=== PATIENT | male | born 2000 | race Caucasian/White ===

== ENCOUNTER 2022-09-28 10:29 | Day surgery (SDC) | payer OTHER, SELFPAY ==
[2022-09-28] VITALS (16 sets, daily range): BP systolic 90–153; BP diastolic 55–109; PULSE 46–69; RESP 16–20; TEMP 36.3–37.1; O2SAT 96–100; BMI 20.3
--- NOTE | 2022-09-28 11:00 | ED_ITS ---
HPI - Abdominal Pain General Time Seen by Provider: 10:45 Date Seen: 09/28/22 Chief Complaint: Abdominal Pain Stated Complaint: Lower RT quadrant abdominal pain Time Seen by Provider: 09/28/22 10:59 Source: patient, family, RN notes reviewed and old records reviewed Mode of arrival: ambulatory Limitations: no limitations History of Present Illness HPI narrative: Henrique is a very pleasant 22-year-old male previously healthy who comes to the emergency room with his father for evaluation of abdominal pain. Patient had the onset of right lower quadrant pain 3 days ago which has continued and seems to be a little bit worse today. He is still eating and has no nausea or vomiting. He has not had fever or chills. Occasionally the pain in the right lower quadrant radiates into the right groin. He has no pain radiating into his scrotum or history of kidney stones. He denies dysuria hematuria. Two siblings have had appendicitis. Dad also states that Henrique has had possibly some issues with his GI tract. He has remote family history of celiac disease. He tends toward looser stools and that is what he is experiencing currently. Has not noticed any blood in his stool. Related Data Home Medications Medication Instructions Recorded Confirmed No Known Home Medications 09/28/22 09/28/22 Allergies Allergy/AdvReac Type Severity Reaction Status Date / Time No Known Drug Allergies Allergy Verified 09/28/22 11:40 Review of Systems Status of ROS Reports: 10 or more systems reviewed and unremarkable except as noted in History and below Const Denies: fever, chills, change in weight or fatigue ENMT Denies: throat pain, neck pain or difficulty swallowing Cardio Denies: chest pain or shortness of breath with exertion Resp Denies: shortness of breath, cough or wheezing GI Reports: abdominal pain; Denies: nausea, vomiting, difficulty swallowing or blood in stool Denies: painful urination, urinary frequency or urinary urgency Musculo Denies: neck pain Integ/Breast Denies: rash Neuro Denies: headache or numbness in extremities Endo Denies: fatigue Allergy/Immuno Denies: wheezing PFSH PFSH Social History (Updated 09/28/22 @ 14:25 by Sang Liu MD) Narrative: Patient denies smoking and occasionally drinks alcohol. He works in [employer], office job. Smoking Status: Never smoker Do you use any of these nicotine containing products: None How often do you have a drink containing alcohol: never How often do you have six or more drinks on one occasion: Never AUDIT-C Alcohol total score: 0 Non-prescribed substance use: denies use Exam Narrative: Exam Narrative: Henrique is alert and oriented. Very pleasant young man in no acute distress. Heart with regular rate and rhythm and lungs are clear. Abdomen is soft but he does have tenderness right lower quadrant any does have rebound tenderness. I do not palpate any bulging or evidence of hernia. Moving of the bed or hitting the bottom of his foot does not increase his pain. Const: Vital Signs, click to edit/add: Vital Signs - 24 hr 09/28/22 10:33 09/28/22 14:50 Temperature 97.3 F L 98.7 F Pulse Rate [Pulse Oximeter] 69 54 L Respiratory Rate 16 18 Blood Pressure [Ri ght Upper Arm] 139/94 H 121/74 Pulse Oximetry 97 98 Oxygen Delivery Me thod Room Air Room Air Documenting provider has reviewed patient's vital signs: yes Course Course Hospital Course: Differential diagnosis includes but is not limited to appendicitis, hernia, colitis. Recommend IV placement with 1 L normal saline, CBC, CRP, comprehensive panel and urinalysis check. Reevaluation(s) Reevaluation #1: Patient will proceed to CT to rule out appendicitis even with normal white count. Patient declines any pain medications at this time. Vital Signs Vital signs: Initial Vital Signs Temperature 97.3 F L 09/28/22 10:33 Temperature Source Temporal Artery Scan 09/28/22 10:33 Pulse Rate 69 09/28/22 10:33 Respiratory Rate 16 09/28/22 10:33 Blood Pressure 139/94 H 09/28/22 10:33 Blood Pressure Mean 109 09/28/22 10:33 Blood Pressure Position Supine 09/28/22 10:33 Pulse Oximetry 97 09/28/22 10:33 Oxygen Delivery Method 09/28/22 10:33 Vital Signs Temperature 97.3 F L 09/28/22 10:33 Pulse Rate 69 09/28/22 10:33 Respiratory Rate 16 09/28/22 10:33 Blood Pressure 139/94 H 09/28/22 10:33 Pulse Oximetry 97 09/28/22 10:33 Oxygen Delivery Method 09/28/22 10:33 Temperature 98.7 F 09/28/22 14:50 Pulse Rate 54 L 09/28/22 14:50 Respiratory Rate 18 09/28/22 14:50 Blood Pressure 121/74 09/28/22 14:50 Pulse Oximetry 98 09/28/22 14:50 Oxygen Delivery Method 09/28/22 14:50 MDM - Abdominal Pain MDM Narrative Medical decision making narrative: 1. Appendicitis-patient has a CT confirmed appendicitis. Three days of right lower quadrant pain without anorexia or fever. White count is normal and CRP is 1.3. Currently awaiting surgical consultation. Patient's oral cavity with easily visualized posterior oropharynx. Dentition intact. Patient has no history of problems with anesthesia. No family history of malignant hyperthermia. 2. Disposition-patient will have surgical consultation, likely appendectomy today. Medical Records Attestation: I reviewed the patient's medical records. Lab Data Attestation: I reviewed the patient's lab results. Labs: Lab Results 09/28/22 09/28/22 09/28/22 Range/Units 11:00 11:00 11:00 WBC 8.99 (4.50-11.00) K/uL RBC 5.19 (4.30-5.90) m/uL Hgb 14.7 (13.5-17.5) gm/dL Hct 43.2 (37.0-53.0) % MCV 83 (80-100) fL MCH 28 (26-34) pg MCHC 34 (32-36) gm/dL RDW Coeff of Gail 11.4 L (11.5-15.5) % Plt Count 265 (140-440) K/uL Neut % (Auto) 69.7 (42.0-72.0) % Lymph % (Auto) 19.0 L (20-44) % [place] % (Auto) 9.3 (0.0-11.0) % Eos % (Auto) 1.8 (0.0-7.0) % Baso % (Auto) 0.2 (0.0-3.0) % Neut # (Auto) 6.26 (1.7-7.0) K/uL Lymph # (Auto) 1.70 (0.90-2.90) K/uL [place] # (Auto) 0.80 (0.00-0.90) K/UL Eos # (Auto) 0.16 (0.00-0.50) K/uL Baso # (Auto) 0.02 (0.00-0.30) K/uL Sodium 139 (135-149) mmol/L Potassium 4.3 (3.6-5.1) mmol/L Chloride 103 (96-114) mmol/L Carbon Dioxide 29 (20-32) mmol/L BUN 16 (5-24) mg/dL Creatinine 0.9 (0.5-1.5) mg/dL Estimated Creat Clear 121.80 Estimated GFR 122 ml/min Glucose 85 (60-115) mg/dL Calcium 9.5 (8.4-10.6) mg/dL Total Bilirubin 0.6 (0.1-1.5) mg/dL AST 19 (12-35) U/L ALT 18 (4-50) U/L Alkaline Phosphatase 75 (40-150) U/L C-Reactive Protein 1.3 H (0.5-1.0) mg/dL Total Protein 7.8 (6.0-8.3) g/dL Albumin 4.5 (3.3-5.0) g/dL Urine Color Yellow (Yellow) Urine Appearance Clear (Clear) Urine pH 5.0 (5.0-8.5) Ur Specific [place] 1.010 (1.000-1.030) Urine Protein Negative (Negative) Urine Glucose (UA) Negative (Negative) Urine Ketones Negative (Negative) Urine Blood Trace-lysed A (Negative) Urine Nitrite Negative (Negative) Urine Bilirubin Negative (Negative) Urine Urobilinogen 0.2 (0.2-1.0) Ur Leukocyte Esterase Negative (Negative) Urine RBC 2-5 A (0-2) Urine WBC 0-2 (0-5) Ur Squamous Epith Cells Few (None-Few) Urine Bacteria None (None) Imaging Data CT scan - abdomen: Attestation: I have reviewed the pertinent imaging results. My impression: I believe I am seeing and acute appendicitis. With appendicoliths. Radiologist's impression: ?Heart size is normal the lung bases are clear. Spleen liver pancreas gallbladder adrenal glands kidneys unremarkable. Urinary bladder unremarkable prostate gland unremarkable abundant stool in the colon is unremarkable. Dilated thickened appendix with appendicoliths present. Surrounding inflammatory change multiple mildly prominent right lower quadrant mesenteric nodes likely reactive. Small amount of free fluid in the pelvis No suspicious bony lesions are seen. Impression: ?Acute appendicitis. Appendicolith within the appendix. Discharge Plan Discharge Clinical Impression: Acute appendicitis Patient Disposition: Admitted As Inpatient Condition: Improved
[2022-09-28] MEDS: 0.9 % SODIUM CHLORIDE 1000 ml 1,000 ML IV (11:16)
[2022-09-28 11:20] LABS: Appearance Urine Clear (Clear); Basophils Absolute Auto 0.02 K/uL (0.00-0.30); Basophils Percent Auto 0.2 % (0.0-3.0); Bilirubin Urine Negative (Negative); Blood Urine Trace-lysed (Negative); Color Urine Yellow (Yellow); Eosinophils Absolute Auto 0.16 K/uL (0.00-0.50); Eosinophils Percent Auto 1.8 % (0.0-7.0); Glucose Urine Negative (Negative); Hematocrit 43.2 % (37.0-53.0); Hemoglobin* 14.7 gm/dL (13.5-17.5); Ketones Urine Negative (Negative); Leukocyte Esterase Urine Negative (Negative); Mean Corpuscular HGB Conc 34 gm/dL (32-36); Mean Corpuscular Hemoglobin 28 pg (26-34); Mean Corpuscular Volume 83 fL (80-100); Monocytes Percent Auto 9.3 % (0.0-11.0); Neutrophils Absolute Auto 6.26 K/uL (1.7-7.0); Neutrophils Percent Auto 69.7 % (42.0-72.0); Nitrite Urine Negative (Negative); Platelet Count* 265 K/uL (140-440); Protein Urine Negative (Negative); RDW Coefficient of Variation % 11.4 % (11.5-15.5); Red Blood Count 5.19 m/uL (4.30-5.90); Slide Review Reflex No; Urobilinogen Urine 0.2 (0.2-1.0); White Blood Count* 8.99 K/uL (4.50-11.00)
[2022-09-28 11:27] LABS: Squamous Epithelial Cell Urine Few (None-Few); WBC Urine 0-2 (0-5)
--- NOTE | 2022-09-28 11:31 | CRLHL7_ITS ---
For Patients: As a result of the Century Cures Act, medical imaging exams and procedure reports are released immediately into your electronic medical record. You may view this report before your referring provider. If you have questions, please contact your health care provider. Indication: Right lower quadrant pain Technique: Contrast CT abdomen and pelvis Comparison: No comparison Findings: Heart size is normal the lung bases are clear. Spleen liver pancreas gallbladder adrenal glands kidneys unremarkable. Urinary bladder unremarkable prostate gland unremarkable abundant stool in the colon is unremarkable. Dilated thickened appendix with appendicoliths present. Surrounding inflammatory change multiple mildly prominent right lower quadrant mesenteric nodes likely reactive. Small amount of free fluid in the pelvis No suspicious bony lesions are seen. Impression: Acute appendicitis. Appendicolith within the appendix. Please note that all CT scans at this facility use dose modulation, iterative reconstruction, and/or weight-based dosing when appropriate to reduce radiation dose to as low as reasonably achievable. Dictated by Annalisa Huang MD @ 09/28/2022 12:24:56 PM (Electronically Signed)
[2022-09-28 11:32] LABS: Albumin* 4.5 g/dL (3.3-5.0); Chloride* 103 mmol/L (96-114); Sodium* 139 mmol/L (135-149)
[2022-09-28 11:33] LABS: Potassium* 4.3 mmol/L (3.6-5.1)
[2022-09-28 11:35] LABS: Alkaline Phosphatase* 75 U/L (40-150); Aspartate Amino Transferase* 19 U/L (12-35); Bilirubin Total* 0.6 mg/dL (0.1-1.5); Carbon Dioxide* 29 mmol/L (20-32); Creatinine* 0.9 mg/dL (0.5-1.5); Estimated Glomerular Filt Rate 122 ml/min; Total Protein* 7.8 g/dL (6.0-8.3)
[2022-09-28 11:36] LABS: Alanine Aminotransferase* 18 U/L (4-50); Blood Urea Nitrogen* 16 mg/dL (5-24); Calcium* 9.5 mg/dL (8.4-10.6); Glucose* 85 mg/dL (60-115)
[2022-09-28 11:38] LABS: C Reactive Protein* 1.3 mg/dL (0.5-1.0)
--- NOTE | 2022-09-28 14:23 | P.GSHP_ITS ---
History of Present Illness History of Present Illness Date Seen: 09/28/22 Chief complaint: Lower RT quadrant abdominal pain Narrative: Henrique Alexis is a 22 year old male presented to emergency room with right lower quadrant abdominal pain that started 2 days ago. He describes the pain as sharp and worse with certain movements. Coughing and pressure makes the pain worse. Patient denies any nausea vomiting. The pain is constant and nothing was making the pain better. Patient is passing gas. I reviewed patient's laboratory and imaging is findings. His WBC is normal at 8.9. His basic metabolic panel is normal as well. His CRP slightly elevated at 1.3. An abdominal CT was obtained that showed a dilated appendix with multiple appendicoliths. There is minimal surrounding inflammation with no phlegmon. Review of Systems Narrative: General: no fevers HENT: no problems swallowing CV: no shortness of breath Resp: no cough GI: See above Skin: no new rashes Musculoskeletal: no back pain Neuro: no muscle weakness PFSH PFSH Social History (Updated 09/28/22 @ 14:25 by Sang Liu MD) Narrative: Patient denies smoking and occasionally drinks alcohol. He works in [employer], office job. Meds Home Medications and Allergies Home Medications Medication Instructions Recorded Confirmed Type No Known Home Medications 09/28/22 09/28/22 History Allergies Allergy/AdvReac Type Severity Reaction Status Date / Time No Known Drug Allergies Allergy Verified 09/28/22 11:40 Exam Narrative: Exam Narrative: General appearance: Alert, cooperative, and in no distress Pulmonary: Chest symmetric, lungs clear bilaterally Cardiovascular Heart: Regular rate and rhythm, S1, S2, no murmurs/rubs/gallops Gastrointestinal Abdominal: soft, not distended, tender to palpation in the right lower quadrant with rebound tenderness. Skin: Normal skin color, texture, and turgor. No rashes or lesions. Psychiatric: Alert, cooperative, normal affect. Const: Vital Signs, click to edit/add: Vital Signs - 24 hr 09/28/22 10:33 Temperature 97.3 F L Pulse Rate [Pulse Oximeter] 69 Respiratory Rate 16 Blood Pressure [Ri ght Upper Arm] 139/94 H Pulse Oximetry 97 Oxygen Delivery Me thod Room Air Assessment and Plan Assessment and plan (1) Acute appendicitis: Status: Acute Plan 22-year-old male presents with right lower quadrant abdominal pain that is due to acute appendicitis. I discussed with the patient and his father his laboratory and imaging findings. His CT clearly shows dilated appendix with multiple appendicoliths. His clinical history and imaging is confirming acute appendicitis. I recommended to proceed with laparoscopic appendectomy. The procedure was discussed in detail. The risks associated the procedure including infection, bleeding, and injury to intra-abdominal organs were discussed with the patient, and he agreed to proceed.
[2022-09-28] MEDS: CEFAZOLIN 2 GM INJ IVP (15:18)
--- NOTE | 2022-09-28 16:16 | P.GSOP_ITS ---
Operative Note Date of procedure: 09/28/22 Type of Procedure: 1. Laparoscopic appendectomy. Procedure Description: After discussing the risks and benefits of the procedure, the patient signed informed consent.? The operative site was marked and the patient was brought to the operating room and placed on the operating table in supine position.? Care was taken to pad the patient's pressure points.?? The patient was then intubated by anesthesia.?? The operative site was then prepped and draped in the usual sterile fashion.? A time-out was then performed. A 5-mm laparoscopy port was placed in the left upper quadrant guided by a 5-mm laparoscope placed into a translucent trochar. Passage through the layers of the abdominal wall was visualized with the laparoscope. A pneumoperitoneum was established. A 30-degree 5-mm laparoscope was advanced into the abdomen. The abdomen was briefly surveyed, and there was no evidence of diffuse peritonitis. A 12-mm port and a 5-mm port were placed in the left low quadrant and suprapubically, respectively, under direct visualization by laparoscope. Left upper quadrant entrance port was then examined intraabdominally by placing the camera through the left lower quadrant port and no intraabdominal injury was seen. The patient was placed in Trendelenburg position, allowing the abdominal contents to shift cephalad. The small bowel was moved toward the midline in the abdomen and this allowed for identification of the appendix. The appendix was dilated starting at the base and extending to the distal appendix. The appendix was grasped and dissected from the peritoneum using Harmonic scalpel. Appendi ceal mesentery was skeletonized with the Harmonic scalpel. Appendiceal base and adjacent cecum were edematous. Appendiceal artery and vein were clipped with 5 mm clips on the patient's side and divided with Harmonic scalpel near the specimen. A 60 mm vascular load Endo-INDIA stapler was advanced through the 12-mm port into the abdomen and appendix was stapled off at its base. A cuff of cecum was included in the specimen due to the thickness of the appendiceal base. The appendix was then placed in an endoscopic retrieval bag and extracted from the abdomen through the 12-mm port. The abdomen was surveyed for hemostasis. And no bleeding was seen. The 12-mm port was withdrawn and the fascial defect was closed with 0-0 Vicryl stitch under direct visualization. This closure was examined intra-abdominally, and no intra-abdominal organs were incarcerated in the closure. The 5-mm port was removed under direct visualization. The left upper quadrant port was used to evacuate the pneumoperitoneum and then withdrawn. The skin incisions were closed with 4-0 monocryl. Steri-Strips were applied over the incisions. All counts were correct at the end of the case. The patient tolerated this procedure well and was transferred to PACU in stable condition.? Findings: Inflamed appendix with dilated appendiceal base and adjacent edematous cecum. Anesthesia: GETA Surgeon: Sang Liu MD Estimated blood loss (mL): 5 Condition: stable Disposition: PACU
--- NOTE | 2022-09-28 16:30 | W.ANESCHARGE ---
Anesthesia Charges Start Date/Time Anesthesia Start Date: 09/28/22 Anesthesia Start Time: 15:10 Stop Date/Time Anesthesia Stop Date: 09/28/22 Anesthesia Stop Time: 16:27 Summary Emergency: Yes
[2022-09-28] MEDS: fentaNYL 100 MCG/2 ML inj 50 MCG IVP (16:45)
--- NOTE | 2022-09-28 21:43 | PC.NURSE ---
Pt. up to floor at 1700. three lap sites covered in steri strips C/D/I. Pt. alert and oriented x4 pleasant and cooperative. Pt. denies pain. Tolerating ice chips, fluids and food. Denies N/V. VSS. Up to BR at 1845 and voided 300CC. Pt. up to chair and tolerating ambulating well. Pt. was discharged to home at 1920 accompanied by father, pt. ambulated. IV removed intact. Discharge instructions given and signed.
== END 2022-09-28 19:20 | disposition home or self-care (01) ==
LOC: ED 14:15 → SS 15:18 → MEDSURG 17:11 → SS 11-07 17:45
PROVIDERS: Emergency Provider Family Medicine; PCP Family Medicine; Visit Provider Surgery
PROC: 0DTJ4ZZ Resection of Appendix, Percutaneous Endoscopic Approach (ICD-10-PCS; CPT 44970; principal; 2022-09-28 14:45)
DX: K35.80 Unspecified acute appendicitis (principal)
CPT/HCPCS: 44970; 00840; 36415; 74177; 80053; 81001; 85025; 86140; 88304; 99140; 99284; J0330; J0690; J1100; J1200; J1885; J2250; J2405; J2704; J2710; J3010; J3490; J7030; Q9967